=== PATIENT | male | born 1970 | race Two or more races ===

== ENCOUNTER 2023-03-22 18:11 | Emergency (ER) | payer BC ==
[~2023-03-22] VITALS: Ht 170.2 cm; Wt 86.4 kg
[2023-03-22] MEDS ORDERED: PERTUSS(ACELL),DIPH,TET VAC/PF 0.5 ML SYRINGE IM. ONE (18:30)
[2023-03-22] MEDS ORDERED: LIDOCAINE 1% 10 ML VIAL PERC ONE (19:15)
[2023-03-22] MEDS ORDERED: HYDROCODONE/ACETAMINOPHEN 5-325 MG TABLET PO ONE (19:15)
[2023-03-22] MEDS ORDERED: IBUP-1492 PO (20:13)
[2023-03-22] MEDS ORDERED: BACI28OI9 TP (20:13)
[2023-03-22] MEDS ORDERED: AMOX1TAB16 PO (20:13)
[2023-03-22] MEDS ORDERED: NEOMYCIN/BACITRACIN/POLYMYXIN B OINTMENT PACKET TP ONE (20:15)
[2023-03-22] MEDS ORDERED: HYDR-4723 PO (20:15)
[2023-03-22 20:36] VITALS: BP 130/73
[2023-03-22] MEDS ORDERED: HYDR-4400 PO (21:15)
== END 2023-03-22 20:41 | disposition home or self-care (01) ==
LOC: EMS 18:14
DX: S61.452A Open bite of left hand, initial encounter (principal); Z98.890 Other specified postprocedural states; W54.0XXA Bitten by dog, initial encounter; Y93.89 Activity, other specified; Y92.89 Other specified places as the place of occurrence of the external cause; Y99.8 Other external cause status
CPT/HCPCS: 99283; 73130; 90715; 90471; 12002; J3490

== ENCOUNTER 2023-03-29 14:18 | Emergency (ER) | payer BC ==
[~2023-03-29] VITALS: Ht 170.2 cm; Wt 63.6 kg
[~2023-03-29 14:18] MED LIST: AMOX1TAB16 PO; BACI28OI9 TP; HYDR-4400 PO; HYDR-4723 PO; IBUP-1492 PO
[2023-03-29 14:25] VITALS: BP 144/77; PULSE 71; RESP 18; TEMP 98.6
== END 2023-03-29 15:09 | disposition home or self-care (01) ==
LOC: EMS 14:20
DX: S61.452D Open bite of left hand, subsequent encounter (principal); Z48.02 Encounter for removal of sutures; Z98.890 Other specified postprocedural states; W54.0XXD Bitten by dog, subsequent encounter
CPT/HCPCS: 99281; Z7502